=== PATIENT | male | born 1995 | race Caucasian/White ===

== ENCOUNTER 2019-03-31 17:57 | Emergency (ER) | payer MEDICAID ==
[~2019-03-31] VITALS: Ht 188 cm; Wt 70.0 kg
[2019-03-31 18:09] VITALS: BP 124/73
[2019-03-31] MEDS ORDERED: CEPH250T PO (18:55)
== END 2019-03-31 19:16 | disposition home or self-care (01) ==
LOC: ER 17:58
DX: L03.116 Cellulitis of left lower limb (principal); F15.90 Other stimulant use, unspecified, uncomplicated; F12.90 Cannabis use, unspecified, uncomplicated; Z79.2 Long term (current) use of antibiotics; Z88.0 Allergy status to penicillin
CPT/HCPCS: 99283